=== PATIENT | male | born 1995 | race Caucasian/White ===

== ENCOUNTER 2023-09-29 12:46 | Outpatient (CLI) | payer OTHER ==
--- NOTE | 2023-09-29 14:37 | MRI Report ---
PROCEDURE: THORACIC SPINE WO INDICATIONS: DORSALGIA TECHNIQUE: Noncontrast sagittal T1 spine echo and T2 fast spin echo, sagittal STIR, axial T1 and T2 fast spin ec ho through the thoracic spine. COMPARISON: None. FINDINGS: Image quality: Excellent. Alignment and Curvature: There is normal bony alignment. Bone Marrow: Marrow is of normal overall signal. No acute vertebral body compression fractures. Spinal Cord: Visualized spinal cord is normal in size and signal. Paraspinous Soft Tissues: No paravertebral masses. Miscellaneous: On axial images, central canal and foramina appear widely patent at all scanned level s. T7-T8: Minimal central posterior disc protrusion abutting the cord without canal stenosis. Reference image 4 of axial series 12. T8-T9: Mild to moderate broad-based posterior disc protrusion abutting the cord without canal stenosi s. IMPRESSION: 1. A minimal disc protrusion at T7-T8 and a mild to moderate disc protrusion at T8-T9 are of uncertai n significance. They can be associated with pain. 2. No canal stenosis or foraminal stenosis. Reviewed by: Ari Anderson MD on 09/29/2023 2:36 PM PST Approved by: Ari Anderson MD on 09/29/2023 2:36 PM PST Station ID: [id number]
== END 2023-09-29 12:47 | disposition home or self-care (01) ==
LOC: DI 12:46
DX: M51.24 Other intervertebral disc displacement, thoracic region (principal)

== ENCOUNTER 2023-12-27 12:41 | Outpatient (CLI) | payer OTHER ==
--- NOTE | 2023-12-27 20:21 | SLEEP CARE CONSULTATION ---
Information from patient questionnaire entered by Justine Jenkins. I have reviewed and concur with the information entered by Justine Jenkins. This document represents the service I personally performed and the decisions made by me, Giorgi Cooper MD, [facility]. History of Present Illness Service Date and Time: 12/27/2023 1241 Reason for Visit: New patient Chief Complaint: reports: Unrefreshed sleep, Snoring, Excessive daytime sleepiness, Observed pauses in breathing, Fatigue, Frequent awakenings at night Date of Onset: OVER A YR Usual bedtime: 10PM Time it takes to fall asleep: NOT LONG Snores at night: Yes Observed to quit breathing while asleep: Yes Sleeps alone due to snoring: No Number of times waking at night: 2-3 Reasons for waking at night: reports: Snoring, Gasping for air, Other (UNKNOWN) Toss, Turn, or Twitch while sleeping: Yes Feels refreshed in the morning: No Morning headache: Yes Sleepy or fatigued during the day: Yes Takes day naps: No Dreams during day naps: No Prior sleep studies: No Additional HPI information: I had the pleasure of seeing Mr. Arzate today regarding the possibility of him having a sleep disorder. As you know, he is a 28-year-old gentleman who complains of loud snore, observed apneas, frequent awakenings, unrefreshed sleep, persistent fatigue, and excessive daytime sleepiness for about a year. The patient tells me that he normally goes to bed around 10 pm, and it takes him approximately just a few minutes to fall asleep. He has been told that he snores loudly and irregularly at night. He has also been observed to stop breathing in his sleep. His can still sleep in the same bed. He can recall waking up on the average of 2 - 3 times during the night. Most of the time he wakes up because of his own snoring, choking, and having to gasp for air. There is a lot of tossing and turning in his sleep. No somniloquy (sleep talking) or somnambulism (sleep walking). Generally, there is no recollection of dreams. In the morning he usually gets up out of the bed around 5 - 7 a.m. not feeling refreshed nor rested. He usually has a morning headache. During the day he complains of feeling sleepy and fatigued. His score on [place] Sleepiness Scale is 20 out of 24. He never has fallen asleep while driving nor has had any accident due to sleepiness. He usually does not take naps during the day. Upon falling asleep during the day he denies having vivid dreams. He has never had sleep paralysis, experienced cataplexy but reports symptoms of restless leg syndrome. He reports having impaired concentration during the day. - Parasomnia Symptoms Ever been unable to move upon waking from sleep: Yes Walks in sleep: No Talks in sleep: No Ever acted out dreams in sleep: No Ever felt weak in the knees when startled or emotional: No Bothered by creepy, crawly, restless sensations in legs: Yes Problems with memory or concentration: Yes Subjective Initial [place] Sleepiness Scale score: 20 (12/27/23) Past Medical History Past Medical History: reports: Anxiety Social History The patient's occupation is a FT. Patient is and lives in . Have you smoked in the past 12 months: No Alcohol use: No Caffeine use: Yes Caffeine amount and frequency: COFFEE 1-2 CUPS IN MORNING Family History Family history of sleep disordered breathing: Yes Family Hx Sleep Apnea: Father: Snoring, Sleep apnea - Treated Allergies and Home Medications Known drug allergies: No Drug allergies reviewed: Yes Home medication list reviewed: Yes Review of Systems Weight gain over past 5 years: 10-15 Cardiovascular: denies: high blood pressure, palpitations, chest pain, irregular heart rate or pulse, leg or foot swelling, have to sleep sitting up, other Respiratory: denies: shortness of breath, wheeze, sputum production, chronic cough, other Gastrointestinal: denies: heartburn, difficulty swallowing, nausea, vomitting, diarrhea, abdominal pain, other Urinary: denies: incontinence, frequency, urgency, impotence, other Neurological: reports: headaches Psychiatric: reports: anxiety Ear/Nose/Throat: denies: nasal congestion, sinus problems, nose bleeds, dry mouth/throat, hoarseness, injury to nose, tonsillectomy, wisdom teeth removed, other Endocrine: reports: sluggishness Musculoskeletal: reports: joint pain, back pain, muscle pain or cramping Immunologic: denies: sneezing, rash, itching, allergies to food or environment, other Physical Exam Vital signs obtained and entered by: JUSTINE Perdue MA Blood Pressure: 129/87 (RIGHT ARM) Cuff size: regular Heart Rate: 74 O2 Saturation: 100 Height: 5 ft 10 in Weight: 166 lb 9.6 oz Body Mass Index: 23.9 BMI Classification: Normal Neck circumference: 14.25 Mood/affect: normal HEENT: No craniofacial malformation Nostrils: patent to airflow Turbinates: normal Septum: midline Mouth and throat: narrow oropharynx Soft palate: long Hard palate: normal Uvula: normal Uvula visualization: 50% Mallampati Class II Tongue: normal in size Tonsils: small Chin and jaw: normal size and position Neck: normal w/o lymphadenopathy or thyromegaly Heart: regular rate and rhythm Lungs: clear bilaterally Extremities: no edema or clubbing Neurologic: intact Impression and Plan IMPRESSION: 1. Obstructive Sleep Apnea-Hypopnea Syndrome, as suggested by history of loud and irregular snoring, observed cessation of breath while asleep, frequent awakenings during the night, nocturnal choking, unrefreshed sleep, cognitive impairment, and daytime hypersomnolence. Narrow oropharynx is a common predisposing factor for obstructive sleep apnea-hypopnea syndrome. I recommend proceeding to polysomnography to confirm the diagnosis and to assess severity. However, the patient would like to have a home sleep apnea test (HSAT) because he sleeps on a special mattress due to back pain, Plan: 1. Schedule a home sleep apnea test (HSAT) 2. Avoid long distance driving or when feeling sleepy. 3. Avoid alcohol, sedative and muscle relaxant around bedtime. 4. Return for follow up after the test. Follow up with Sleep Care in: 1-2 months Visit Type: In Office Time Spent with Patient (minutes): 15 Provider Statement: I spent 100% of the Face to Face Visit with the patient with greater than 50% spent counseling the patient and coordination of care.
[2023-12-27 20:24] VITALS: BP 129/87; O2SAT 100
== END 2023-12-27 12:42 | disposition home or self-care (01) ==
LOC: SC 12:41
PROVIDERS: ATTEND Internal Medicine Pulmonary Disease
DX: R06.83 Snoring (principal); R06.81 Apnea, not elsewhere classified; G47.10 Hypersomnia, unspecified; G47.8 Other sleep disorders
CPT/HCPCS: 99202; 99212

== ENCOUNTER 2024-01-26 12:28 | Outpatient (CLI) | payer OTHER | END 2024-01-26 12:29 | disposition home or self-care (01) | LOC: SC 12:28 | PROVIDERS: ATTEND Internal Medicine Pulmonary Disease | DX: R06.83 Snoring (principal); G47.10 Hypersomnia, unspecified; R06.81 Apnea, not elsewhere classified; R09.02 Hypoxemia; R00.0 Tachycardia, unspecified | CPT/HCPCS: 95806 ==

== ENCOUNTER 2024-02-07 10:31 | Outpatient (CLI) | payer OTHER ==
--- NOTE | 2024-02-07 14:17 | SLEEP CARE CONSULTATION ---
Information from patient questionnaire entered by Justine Jenkins. I have reviewed and concur with the information entered by Justine Jenkins. This document represents the service I personally performed and the decisions made by me, Giorgi Cooper MD, [facility]. History of Present Illness Service Date and Time: 02/07/2024 1031 Initial [place] Sleepiness Scale score: 20 (12/27/23) Current [place] Sleepiness Scale score: 20 (02/07/24) Additional HPI information: Mr. Arzate was called (telephone encounter) for follow up of the home sleep apnea test (HSAT) he had on 01/26/24. The test did not show significant sleep- disordered breathing (AHI was only 1.5 and chris oxygen saturation 83%). The patient slept supine all night. Maximum heart rate was slightly high at 139 beats per minute. Sleep Study - Results Type of Sleep Study: Home sleep study (COMPLETED 01/26/24) Prior sleep studies: No Allergies and Home Medications Drug allergies reviewed: Yes Home medication list reviewed: Yes Allergy and home medication list: Allergies No Known Drug Allergies Allergy (Verified 02/03/24 16:13) Review of Systems Review of systems same as previous: Yes (NO CHANGE) Physical Exam Vital signs obtained and entered by: JUSTINE Perdue MA Height: 5 ft 10 in (PER PT) Weight: 160 lb (PER PT) Body Mass Index: 22.9 BMI Classification: Normal Impression and Plan IMPRESSION: 1. Suspected sleep apnea, not evident by his recent home sleep apnea test (HSAT). Given his report of loud snore, observed apneas, and excessive daytime sleepiness; I recommend further evaluation with an in-laboratory polysomnography. The patient is relocating away from [place] and will fine another sleep physician at his new location. PLAN: 1. Find a local sleep physician and have an in-laboratory polysomnography. Visit Type: Telehealth Phone Patient Location: Home Location of Provider: Office Time Spent with Patient (minutes): 15 Provider Statement: I spent 100% of the Telehealth Phone Call with the patient with greater than 50% spent counseling the patient and coordination of care.
== END 2024-02-07 10:32 | disposition home or self-care (01) ==
LOC: SC 10:31
PROVIDERS: ATTEND Internal Medicine Pulmonary Disease
DX: R06.83 Snoring (principal); G47.8 Other sleep disorders; G47.10 Hypersomnia, unspecified
CPT/HCPCS: 99442